=== PATIENT | female | born 1980 | race Asian ===

== ENCOUNTER → 2016-10-22 | Outpatient (CLI) | payer OTHER ==
[2016-10-22 14:38] LABS: MANUAL MICROSCOPIC REQUIRED? NO; REVIEW REQ? YES; URINE APPEARANCE CLEAR (CLEAR); URINE BILIRUBIN NEG (NEG); URINE COLOR YELLOW; URINE EPITHELIAL CELL AUTO >30 /lpf (0-5); URINE NITRITE NEG (NEG); URINE SPECIFIC GRAVITY 1.014 (1.000-1.030); UROBILINOGEN NEG (NEG)
== END | disposition home or self-care (01) ==
LOC: C.LABSPEC 13:21
PROVIDERS: ATTEND Obstetrics & Gynecology
DX: Z34.00 Encounter for supervision of normal first pregnancy, unspecified trimester (principal)

== ENCOUNTER → 2016-10-29 | Outpatient (CLI) | payer OTHER ==
[2016-10-29 14:44] LABS: BASO % 0.5 %; BASO ABS # 0.03 K/uL (0-0.2); COMPLETE YES; EOS % 2.2 %; HEMATOCRIT 37.3 % (37-47); IG% 0.2 %; LYMPH % 24.9 %; LYMPH ABS # 1.49 K/uL (1.2-3.4); MEAN CELL VOLUME 86.7 fL (80-100); MEAN CORPUSCULAR HEMOGLOBIN 30.2 pg (25-34); MEAN CORPUSCULAR HGB CONC 34.9 g/dl (32-36); MONO % 8.7 %; NEUT % 63.5 %; PLATELET COUNT 248 K/uL (130-400); WHITE BLOOD COUNT 5.99 K/uL (4.8-10.8)
== END | disposition home or self-care (01) ==
LOC: C.LAB1850 12:40
PROVIDERS: ATTEND Obstetrics & Gynecology
DX: Z34.00 Encounter for supervision of normal first pregnancy, unspecified trimester (principal)

== ENCOUNTER → 2016-10-29 | Outpatient (CLI) | payer OTHER ==
[2016-11-01 03:20] LABS: CHLAMYDIA TRACH RNA*** NOT DETECTED (NOT DETECTED); GC (NEIS GONORRHOEAE)RNA** NOT DETECTED (NOT DETECTED)
== END | disposition home or self-care (01) ==
LOC: C.LABSPEC 17:28
PROVIDERS: ATTEND Obstetrics & Gynecology
DX: Z34.00 Encounter for supervision of normal first pregnancy, unspecified trimester (principal)

== ENCOUNTER → 2016-12-17 | Outpatient (CLI) | payer OTHER ==
[~2016-12-17] MED LIST: PRENTAB26 PO
[2016-12-17 14:18] LABS: GTGD 50 Grams
== END | disposition home or self-care (01) ==
LOC: C.LAB1850 10:59
PROVIDERS: ATTEND Obstetrics & Gynecology
DX: Z34.00 Encounter for supervision of normal first pregnancy, unspecified trimester (principal)

== ENCOUNTER → 2017-03-08 | Outpatient (CLI) | payer OTHER ==
[2017-03-08 11:49] LABS: URINE APPEARANCE CLOUDY (CLEAR); URINE BILIRUBIN NEG (NEG); URINE COLOR YELLOW; URINE EPITHELIAL CELL AUTO >30 /lpf (0-5); URINE NITRITE NEG (NEG); URINE SPECIFIC GRAVITY 1.026 (1.000-1.030); UROBILINOGEN NEG (NEG)
[2017-03-08 11:51] LABS: MANUAL MICROSCOPIC REQUIRED? NO; REVIEW REQ? YES
[2017-03-08 12:14] LABS: URINE MUCUS PRESENT (NONE PRSENT)
[2017-03-08 12:17] LABS: HEMATOCRIT 34.7 % (37-47)
[2017-03-08 12:27] LABS: GTGD 50 Grams
== END | disposition home or self-care (01) ==
LOC: C.LAB1850 09:49
PROVIDERS: ATTEND Obstetrics & Gynecology
DX: Z34.02 Encounter for supervision of normal first pregnancy, second trimester (principal)

== ENCOUNTER → 2017-05-06 | Outpatient (CLI) | payer OTHER | END | disposition home or self-care (01) | LOC: C.LABSPEC 17:56 | PROVIDERS: ATTEND Obstetrics & Gynecology | DX: Z34.03 Encounter for supervision of normal first pregnancy, third trimester (principal) ==

== ENCOUNTER 2017-06-07 22:53 | Inpatient (IN) | payer OTHER ==
[~2017-06-07] VITALS: Ht 162.6 cm; Wt 72.0 kg
[2017-06-08 01:33] VITALS: Ht 162.6 cm; Wt 72.0 kg
[2017-06-08] MEDS ORDERED: PRENTAB26 PO (01:38)
[2017-06-08] MEDS ORDERED: LACTATED RINGER'S 1000ML 1,000 ML IV SCH (04:25)
[2017-06-08] MEDS ORDERED: LACTATED RINGER'S 1000ML 1,000 ML IV PRN (04:25)
[2017-06-08] MEDS ORDERED: PENICILLIN G POTASSIUM IV 6 MU in DEXTROSE 5% 250ML 250 ML IV ONE (04:30)
[2017-06-08 05:14] LABS: HEMATOCRIT 38.8 % (37-47); MEAN CELL VOLUME 88.6 fL (80-100); MEAN CORPUSCULAR HEMOGLOBIN 29.7 pg (25-34); MEAN CORPUSCULAR HGB CONC 33.5 g/dl (32-36); MEAN PLATELET VOLUME 10.2 fL (7.4-10.4); PLATELET COUNT 221 K/uL (130-400); RED BLOOD COUNT 4.38 M/uL (4.2-5.4); WHITE BLOOD COUNT 8.83 K/uL (4.8-10.8)
[2017-06-08] MEDS ORDERED: BUTORPHANOL TARTRATE 1 MG/ML VIAL IV STA (05:49)
[2017-06-08] MEDS ORDERED: EpHEDrine SULFATE INJ 50 MG/ML AMP ONE (06:19)
[2017-06-08] MEDS ORDERED: BUPIVACAINE 0.25% 30 ML VIAL ONE (06:19)
[2017-06-08] MEDS ORDERED: FENTANYL 2MCG/ML ROPIV 1.25MG/ML 100ML BAG EPI ONE (06:19)
[2017-06-08] MEDS ORDERED: FENTANYL CITRATE INJ 50 MCG/1 ML 2 ML VIAL ONE (06:19)
[2017-06-08] MEDS ORDERED: NALOXONE HCL INJ 1 MG in SODIUM CHLORIDE 0.9% 1000ML 1,000 ML IV PRN ×4 (06:57)
[2017-06-08] MEDS ORDERED: LACTATED RINGER'S 1000ML 500 ML IV PRN ×2 (06:57→10:35)
[2017-06-08] MEDS ORDERED: NALOXONE HCL INJ 0.4 MG/1 ML VIAL/CARP IV PRN (07:00)
[2017-06-08] MEDS ORDERED: ONDANSETRON INJ 2 MG/ML 2 ML VIAL IV PRN (07:00)
[2017-06-08] MEDS ORDERED: DiphenhydrAMINE HCL 50 MG/ML VIAL IV PRN (07:00)
[2017-06-08] MEDS ORDERED: PROMETHAZINE HCL INJ 25 MG in SODIUM CHLORIDE 0.9% 50ML 50 ML IV PRN (07:00)
[2017-06-08] MEDS ORDERED: METOCLOPRAMIDE HCL INJ 20 MG in SODIUM CHLORIDE 0.9% 50ML 50 ML IV PRN (07:00)
[2017-06-08] MEDS ORDERED: EpHEDrine SULFATE INJ 50 MG/ML AMP IV PRN (07:00)
[2017-06-08] MEDS ORDERED: NALBUPHINE HCL INJ 10 MG/ML AMP IV PRN (07:00)
[2017-06-08] MEDS: FENTANYL 2MCG/ML ROPIV 1.25MG/ML 100ML BAG EPI PRN ×2 (07:02→15:40)
[2017-06-08] MEDS: PENICILLIN G POTASSIUM IV 3 MU in DEXTROSE 5% 100ML 100 ML IV PRN ×3 (09:28→17:41)
[2017-06-08] MEDS ORDERED: OXYTOCIN 30 UNITS/500ML NSS IV PRN ×2 (10:45→19:00)
[2017-06-08] MEDS ORDERED: ACETAMINOPHEN/CODEINE 300/30MG TAB PO PRN ×2 (19:00)
[2017-06-08] MEDS ORDERED: HYDROCORTISONE ACETATE 25 MG SUPP PR PRN (19:00)
[2017-06-08] MEDS ORDERED: SUPERCREAM 0.870 % 15GM JAR EXT PRN (19:00)
[2017-06-08] MEDS ORDERED: OXYCODONE/ACETAMINOPHEN 5-325 TAB PO PRN (19:00)
[2017-06-08] MEDS ORDERED: BENZOCAINE 20% AER SPR 82.5 GM CAN EXT PRN (19:00)
[2017-06-08] MEDS ORDERED: DIPHTHERIA/TETANUS/PERTUSSIS 0.5 ML SYR/VIAL IM. ONE (19:00)
[2017-06-08] MEDS ORDERED: ACETAMINOPHEN 325 MG TAB PO PRN (19:00)
[2017-06-08] MEDS ORDERED: LANOLIN OINT EXT PRN ×2 (19:00)
--- NOTE | 2017-06-08 20:41 | Anesthesia Procedure Note ---
Anesthesia Epidural Removal Nt Date & Time Jun 08, 2017 at 20:41 Vital Signs Pain Intensity: 0.0 Notes Mental Status: alert / awake / arousable, participated in evaluation Nausea / Vomiting: adequately controlled Pain: adequately controlled Airway Patency, RR, SpO2: stable & adequate BP & HR: stable & adequate Hydration State: stable & adequate Neuraxial Anesthesia: was administered Anesthetic Complications: no major complications apparent, pt satisfied with anesthetic care Epidural: removed without complications, with tip intact
--- NOTE | 2017-06-08 22:11 | DELIVERY SUMMARY ---
DATE OF OPERATION: 06/08/2017 OPERATIVE VAGINAL DELIVERY PREOPERATIVE DIAGNOSES: Pushing for 2 hours in second stage with maternal fever and tachycardia. POSTOPERATIVE INDICATIONS: Pushing for 2 hours in second stage with maternal fever and tachycardia. PROCEDURE: Low-vacuum assisted vaginal delivery. SURGEON: Jonathon Mohan MD MATERIAL INSPECTOR: None. ESTIMATED BLOOD LOSS: 300 mL. COMPLICATIONS: None. CLINICAL NOTE: Mrs. Richardson had been pushing for 2 hours. She did develop a maternal fever of 102 degrees Fahrenheit as well as tachycardia n the 160s to 170s. She became somewhat exhausted as well. I offered the vacuum as she was +2 cm, and there were no contraindications to use. Reviewed risks and benefits. Vacuum was carefully applied on the head. First, it was noted that the bladder was drained with a red rubber catheter, approximately 20 mL was drained of concentrated urine. Baby was delivered out on one contraction with one pull easily. I did perform a small, right medial lateral episiotomy to facilitate delivery as she was tearing already during her pushing stage. Baby's head was delivered. Vacuum was detached. Mouth and nares were stained. There was some terminal meconium noticed, and then baby was delivered by gentle traction. No excessive force used. There was a loose nuchal cord past over the head. Live vigorous male . Cord clamped and cut, cord gases obtained, and cord blood obtained. Episiotomy was repaired with 3-0 Vicryl. There was also a left sulcal tear that was repaired with 3-0 Vicryl. Placenta was removed with gentle traction. Estimated blood loss 300 mL. Sponge and instrument counts correct. Rectal exam negative for sutures or defects. It should be noted as well that the patient's child seemed to have abnormality with fingers and toes with some being fused. This was relayed to the patient and she was advised the audiology doctor would assess. I attest to the content of the Intraoperative Record and any orders documented therein. Any exceptions are noted below. MTDD
[2017-06-09] VITALS (7 sets, daily range): BP systolic 98–117; BP diastolic 61–72; PULSE 74–106; TEMP 36.7–37.4; O2SAT 96
[2017-06-09] MEDS: DOCUSATE SODIUM 100 MG CAP PO SCH ×3 (00:28→19:37)
[2017-06-09] MEDS: IBUPROFEN 600 MG TAB PO PRN ×4 (00:29→23:32)
--- NOTE | 2017-06-09 06:41 | Progress Note ---
Subjective Jun 09, 2017. Subjective conversation w/ patient, physical exam, chart review Ambulation: ambulating normally Voiding: no voiding problems Diet Tolerance: Regular Diet Lochia: Moderate Feeding Type: Breast Feeding Objective Vital Signs Date Time Temp Pulse Resp B/P (MAP) Pulse Ox O2 Delivery O2 Flow Rate FiO2 06/09/17 00:30 Room Air 06/09/17 00:30 37.4 106 18 116/61 (79) Room Air Physical Exam General Appearance: WELL-APPEARING Respiratory/Chest: lungs clear Abdomen: non tender Fundus: Firm Extremities: no calf tenderness Laboratory Results Last 24 Hours Test 06/09/17 04:44 Assessment and Plan Post- Day#: 1 Continue Routine Care: ccc
[2017-06-09 07:45] LABS: HEMATOCRIT 31.3 % (37-47)
[2017-06-09] MEDS: PRENATAL VITAMIN TAB PO SCH (08:00)
[2017-06-09] MEDS: BISACODYL 5 MG TABEC PO SCH ×2 (19:38→20:41)
--- NOTE | 2017-06-10 06:45 | OB/GYN Progress Note ---
BOX OFFICE AGENT Progress Note Date of Service Jun 10, 2017. Subjective conversation w/ patient, conversation w/ family, physical exam, chart review, lab review Ambulation: limited ambulation Diet Tolerance: Regular Diet Lochia: Small Feeding Type: Breast Feeding (+ BT feeding) Pain: 5/10 Review of Systems Constitutional: No fever Respiratory: No shortness of breath Cardiac: No chest pain Abdomen: No nausea, No vomiting Female : + problem reported (problems urinating had to be cath) Objective Vital Signs Date Time Temp Pulse Resp B/P (MAP) Pulse Ox O2 Delivery O2 Flow Rate FiO2 06/09/17 23:30 37.1 95 18 99/65 (76) 96 Room Air 06/09/17 23:30 96 Room Air 06/09/17 20:01 Room Air 06/09/17 20:01 36.7 101 16 112/72 (85) Room Air 06/09/17 16:30 Room Air 06/09/17 16:30 36.7 80 16 117/63 (81) Room Air 06/09/17 13:00 36.7 85 16 115/65 (82) 06/09/17 10:00 36.7 74 16 98/61 (73) 06/09/17 10:00 Room Air Physical Exam General Appearance: NO APPARENT DISTRESS Respiratory/Chest: lungs clear, normal breath sounds Cardiovascular: regular rate, rhythm Abdomen: normal bowel sounds, non tender, soft Fundus: Firm (3 FB below) Extremities: non-tender, no pedal edema Laboratory Results Last 24 Hours Test 06/09/17 07:33 06/10/17 06:30 Hemoglobin 10.7 g/dL Hematocrit 31.3 % Assessment and Plan Post- Day Number: 2 Continue Routine Care: A/P: This is a 36 y/o female, , s/p normal vaginal delivery PPD#2. She is ambulating and clinically stable to discharge. - Vital signs are reviewed and WNL (Tmax 37.1 ) - Last Hgb 10.7 - Blood type O+, GBS poa, Rubella Immune - Routine care - Encourage ambulation, monitor and control pain with medication as needed, continue with regular diet as tolerated and monitor lochia - Stool softeners and sitz bath recommended - Encourage breast feeding and educate about breast feeding Resident Physician Supervision Note: I interviewed and examined the patient. Discussed with Dr. Ramos and agree with findings and plan as documented in the note. Any exceptions or clarifications are listed here: [None] Documented By: Jonathon Mohan Resident Involvement: Resident Care Provided Care Provided: OB Delivery
[2017-06-10 06:47] LABS: HEMATOCRIT 28.3 % (37-47); MEAN CELL VOLUME 89.6 fL (80-100); MEAN CORPUSCULAR HEMOGLOBIN 30.1 pg (25-34); MEAN CORPUSCULAR HGB CONC 33.6 g/dl (32-36); MEAN PLATELET VOLUME 9.8 fL (7.4-10.4); PLATELET COUNT 147 K/uL (130-400); RED BLOOD COUNT 3.16 M/uL (4.2-5.4)
[2017-06-10] MEDS ORDERED: BISACODYL 10 MG SUPP PR PRN (07:00)
[2017-06-10] MEDS: DOCUSATE SODIUM 100 MG CAP PO SCH ×2 (07:39→19:55)
[2017-06-10] MEDS: PRENATAL VITAMIN TAB PO SCH (07:39)
[2017-06-10 07:43] VITALS: BP 100/65; PULSE 70; TEMP 37.2; O2SAT 98
[2017-06-10] MEDS: IBUPROFEN 600 MG TAB PO PRN ×2 (08:32→17:14)
--- NOTE | 2017-06-10 14:12 | Discharge Instructions ---
Discharge Instructions Date of Service Jun 10, 2017. Admission Reason for Admission: Labor, Gbs, +Rv Culture Discharge Discharge Diagnosis / Problem: after vaginal delivery Discharge Goals Goal(s): Routine recovery after delivery Medications Continue Dispensed Medications: supercream, dermaplast, tucks, lansinoh Activity Recommendations Activity Limitations: per Instructions/Follow-up section . Instructions / Follow-Up Instructions / Follow-Up ACTIVITY RECOMMENDATIONS: * Gradual return to full activity over the next 2-3 weeks. * No lifting - nothing heavier than baby over the next 2-3 weeks. * Do not engage in vigorous exercise, sexual activity or sports until cleared by your physician. * Do not drive or operate any motorized equipment until cleared by your physician. * You may shower/bathe daily. MEDICATIONS: For discomfort or pain, you may use Acetaminophen (Tylenol), Ibuprofen (Advil), or Naproxen (Aleve) following the package directions. For constipation you may use Colace following the package directions. BREAST CARE: If you are not breast feeding: * Wear a supportive bra 24 hours a day for one to two weeks. * Avoid stimulating your breasts and nipples as much as possible during the first few weeks after delivery. * When taking a shower, have the warm water hit your back, not breasts. * When your breasts feel full, apply ice packs. Usually three to four times a day helps ease the discomfort. * Take a mild pain medication (Tylenol / Motrin) when you are uncomfortable. If breast feeding: * Use breast milk to lubricate nipples. Lansinoh cream may be used for sore nipples. You do not need to remove cream prior to breast feeding. If using a different brand of cream, check the label for directions regarding removal of cream prior to nursing. * Wear a supportive bra. * If having problems with breasts or breast feeding, call a computer systems consultant or your health care provider. EPISIOTOMY CARE: After delivery, if you have an episiotomy (stitches), the following steps will ease discomfort and aid healing. * For the first 24 hours after delivery, place ice packs next to your episiotomy to help reduce swelling. * After the first 24 hour-period, sitz baths, either portable or in the tub, are suggested. A shower with a shower arm sprayed over the episiotomy may be comforting. * Zena care should be done after each voiding and bowel movement. Squirt warm water from a plastic bottle over the perineum (region of the body between the anus and urinary opening) and pat dry. * Use Dermoplast to ease discomfort. Shake container. [place] directly over the episiotomy. Place a Tucks on a clean sanitary pad next to your episiotomy. SPECIAL CARE INSTRUCTIONS: When you are discharged from the hospital, it is important for you to follow the instructions listed below: * During the first week at home, you should be able to care for yourself and your baby. In addition, the usual light household activities are encouraged. * Limit your activities to the way you feel. Do not try to clean the house or move furniture. Be sensible. * If you actively engage in sports and have done so up until the time of your delivery, you may resume these activities as soon as you feel able. This may take up to one month or even longer. Use good judgment. * Continue to take your vitamins for at least six weeks after the of your baby. * Your diet need not be limited unless you were on a special diet before your delivery. Breast-feeding mothers need around 2500 calories per day and at least 64-80 ounces of fluid per day (8 to 10 glasses). * You should eat foods from the four major food groups. Crash diets or fad diets are to be avoided. Eating lean meats, fresh fruits and vegetables, low-fat dairy products, high fiber foods and a regular exercise program, will help you get back to your pre- weight without putting your health at risk. * Constipation is sometimes a problem after delivery. Take a mild laxative as needed. If breast feeding, Milk of Magnesia is acceptable to use. You may use a suppository or Fleets enema if no episiotomy. * A daily shower or tub bath is suggested. Be sure to thoroughly and gently dry the perineum. * A bloody vaginal discharge will usually continue until around four weeks post . A small amount of bleeding may continue for as long as six weeks. Vaginal discharge changes from the bright red bleeding after delivery to pink then brownish and finally yellowish-pink before becoming white and disappearing. * Bleeding may increase with activity. Your first period may come in 4-8 weeks. If you are breast feeding, your period may be delayed even longer. * [place] (sex) can begin whenever both you and your partner feel comfortable and do not have any form of genital infection. It is recommended that you wait at least six weeks for internal and external healing to occur. If you have questions, please talk to your health care practitioner. A condom should be used to prevent infection and . * Foreplay, gentle intercourse and lubrication is very important the first several times to prevent pain. A water-based lubricant such as K-Y jelly or Astroglide may be used. * If you have RH negative blood and your baby is RH positive, you will receive RHOGAM by injection prior to discharge. The nurse will give you a card to keep with you that has the date and place that you received RHOGAM after delivery. * During your care, you had a Rubella screen done to check for the presence of rubella antibodies in your blood. If your test was negative, you will receive a Rubella vaccine prior to discharge. This vaccine may cause a fever, soreness at the injection site and flu-like symptoms. If these symptoms persist, notify your health care practitioner. is not advised for one month after a Rubella vaccine. * Verbalizes understanding of car seat law as reviewed with patient nursing. * Car Seat hand-out given and reviewed with patient by nursing. * Shaken baby information reviewed with patient by nursing. Call you doctor if: * Heavy bleeding (saturating several pads an hour) or passing clots the size of your fist. * A fever >101 degrees F (38.3 degrees C) on two occasions four hours apart and /or chills. * Unusual pain in the pelvic or vaginal areas. * "Baby Blues" lasting longer than two weeks. If you have any questions or concerns, call your health care practitioner at . FOLLOW UP VISIT: * Please call the office at to schedule a 6 week examination. It is important you keep this appointment. It is important for you to make arrangements for either yearly or twice yearly check-ups thereafter. Current Hospital Diet Patient's current hospital diet: Regular OB Diet Discharge Diet Recommended Diet: Regular Diet Pending Studies Studies pending at discharge: no Medical Emergencies . Who to Call and When: Medical Emergencies: If at any time you feel your situation is an emergency, please call 911 immediately. . Non-Emergent Contact Non-Emergency issues call your: Access Services Librarian . . "Provider Documentation" section prepared by Pablo Ramos. . VTE Core Measure Inpt VTE Proph given/why not?: SCD's
[2017-06-10 15:30] VITALS: BP 106/69; PULSE 82; TEMP 37.2; O2SAT 98
--- NOTE | 2017-06-10 18:53 | Progress Note ---
Progress Note Date of Service Jun 10, 2017. Progress Note Pt has issues with urinary retention. Had mas overnight and was d'cd earlier today. Took a while to void and unclear that she emptied all the way. Concern re : adequate voiding. Will plan monitor with bladder scan through next several voids. Pt will need to stay overnight to better ascertain that she is voiding adequately.
[2017-06-10 23:15] VITALS: BP 109/71; PULSE 84; TEMP 37.1; O2SAT 97
--- NOTE | 2017-06-11 06:49 | OB/GYN Progress Note ---
GRAVITY PROSPECTING OBSERVER HELPER Progress Note Date of Service Jun 11, 2017. Subjective conversation w/ patient, physical exam, chart review, lab review Ambulation: ambulating normally Voiding: mas catheter in place Passing Gas: Yes Diet Tolerance: Regular Diet Lochia: Small Feeding Type: Bottle Feeding Pain: 5/10 Review of Systems Constitutional: No fever, No chills Respiratory: No shortness of breath Cardiac: No chest pain Abdomen: No nausea, No vomiting Female : No dysuria Objective Vital Signs Date Time Temp Pulse Resp B/P (MAP) Pulse Ox O2 Delivery O2 Flow Rate FiO2 06/10/17 23:15 97 Room Air 06/10/17 23:15 37.1 84 18 109/71 (84) 97 Room Air 06/10/17 15:30 37.2 82 18 106/69 (81) 98 Room Air 06/10/17 15:30 98 Room Air 06/10/17 08:20 Room Air 06/10/17 07:43 37.2 70 20 100/65 (77) 98 Room Air Physical Exam General Appearance: NO APPARENT DISTRESS Respiratory/Chest: lungs clear, normal breath sounds Cardiovascular: regular rate, rhythm Abdomen: normal bowel sounds, non tender, soft Fundus: Firm, Relation to Umbilicus (3 FB below) Incision Description: Clean, Dry & Intact Extremities: non-tender, no pedal edema Assessment and Plan Post- Day Number: 3 Continue Routine Care: A/P: This is a 36 y/o female, , s/p [normal vaginal delivery day 3. She is ambulating and clinically stable. Plan: - Vitals signs are reviewed and WNL (Tmax 37.2 ) - Last Hgb is 9.5 - Blood type O+, GBS pos, Rubella Immune - Routine care - Encourage ambulation, monitor and control pain with medication as needed, continue with regular diet as tolerated and monitor lochia - Stool softeners and sitz bath recommended - Encourage breast feeding and educate about breast feeding Resident Physician Supervision Note: I interviewed and examined the patient. Discussed with Dr. Ramos and agree with findings and plan as documented in the note. Any exceptions or clarifications are listed here: Urinary retention. Discussed above with pt and resident and agree. Given we did return mas last pm gave pt options, remove for retrial, go home with leg bag and come back in 3d or learn CIC. She wants another voiding trial here and if fails will go home with leg bag. I think we should leave in for at least 12hr, which would mean would remove at 10am. All discussed with partner. Either way, plan d/c today and at least 6wks pp checkup and instructions reviewed. Documented By: Malena Benavidez Resident Involvement: Resident Care Provided Care Provided: OB Delivery
[2017-06-11 08:10] VITALS: BP 108/68; PULSE 92; TEMP 37; O2SAT 97
[2017-06-11] MEDS: PRENATAL VITAMIN TAB PO SCH (08:26)
[2017-06-11] MEDS: DOCUSATE SODIUM 100 MG CAP PO SCH (08:26)
[2017-06-11 16:15] VITALS: BP 117/78; PULSE 83; TEMP 37.2; O2SAT 98
--- NOTE | 2017-06-13 08:38 | DISCHARGE SUMMARY ---
HISTORY AND HOSPITAL COURSE: Mrs. Richardson had a vacuum-assisted delivery on 06/08/2017. She was discharged on 06/11/2017. At that time, she was ambulating well, had no extremity pain, was tolerating oral diet, and minimal bleeding. PHYSICAL EXAMINATION: VITAL SIGNS: Stable. She was afebrile. ABDOMEN: Soft, nontender. EXTREMITIES: Negative. PELVIC: Vaginal bleeding minimal. IMPRESSION AND PLAN: Hemoglobin 9.5 post-vacuum assisted delivery; otherwise, uncomplicated. The patient will follow up in the office.
== END 2017-06-11 17:05 | disposition home or self-care (01) | DRG 774 ==
LOC: C.OPB 22:53 → C.LD 22:53 → C.OPB 06-08 04:27 → C.OBG 06-08 23:30
PROVIDERS: ADMIT Obstetrics & Gynecology; ATTEND Obstetrics & Gynecology
PROC: 10D07Z6 Extraction of Products of Conception, Vacuum, Via Natural or Artificial Opening (ICD-10-PCS; principal; 2017-06-08)
PROC: 0W8NXZZ Division of Female Perineum, External Approach (ICD-10-PCS; principal; 2017-06-08)
DX: O48.0 Post-term pregnancy (principal); O75.2 Pyrexia during labor, not elsewhere classified; O99.824 Streptococcus B carrier state complicating childbirth; O76 Abnormality in fetal heart rate and rhythm complicating labor and delivery; O75.81 Maternal exhaustion complicating labor and delivery; O69.81X0 Labor and delivery complicated by cord around neck, without compression, not applicable or unspecified; O90.89 Other complications of the puerperium, not elsewhere classified; R33.9 Retention of urine, unspecified; Z3A.40 40 weeks gestation of pregnancy; Z37.0 Single live birth